=== PATIENT | male | born 1955 | race Caucasian/White ===

== ENCOUNTER 2019-04-11 13:22 | Day surgery (SDC) | payer OTHER, SELFPAY ==
--- NOTE | 2019-04-11 | PATH_ITS ---
[facility] Accession Number: [id number] . 01 Material submitted: . PART A: colon - COLON POLYP AT 30 CM X2 PART B: colon - COLON POLYP AT 40 CM PART C: colon - COLON POLYP AT 10 CM . 02 Diagnosis: A. Colon, Polyp at 30 cm x2, Biopsies: Tubular adenomas. . B. Colon, Polyp at 40 cm, Biopsy: Tubular adenoma in one of three fragments. . C. Colon, Polyp at 10 cm, Biopsy: Tubular adenoma. MRV 04/15/2019 1053 Local . 02 Electronically signed: . Christie Barros MD, Pathologist NPI- [id number] . 01 Gross description: . Part A: COLON POLYP AT 30 CM X2: Received in formalin are multiple fragment(s) of zee, soft tissue measuring 1.0 x 0.7 x 0.2 cm in aggregate submitted entirely in 1 cassette(s) Part B: COLON POLYP AT 40 CM: Received in formalin are 2 fragment(s) of zee, soft tissue measuring 0.3 x 0.2 x 0.2 cm to 0.2 x 0.1 x 0.1 cm submitted entirely in 1 cassette(s) Part C: COLON POLYP AT 10 CM: Received in formalin is 1 fragment(s) of zee, soft tissue measuring 0.3 x 0.2 x 0.1 cm submitted entirely in 1 cassette(s) /QBJ 04/12/2019 1949 Local . 02 Pathologist provided ICD-10: D12.6 . 02 CPT . 271094, 311313, [id number] Performed at: [address], [place], [place] [id number] MD Nash Granda MD Phone: [phone] Performed at: 02 [facility] [address] [place] [id number] MD Christie Barros MD Phone: [phone]
[2019-04-11 14:05] VITALS: BP 119/79; PULSE 91; RESP 20; TEMP 36.9; O2SAT 95; BMI 23.6
[2019-04-11] MEDS: SODIUM CHLORIDE 0.9% 1,000 ML 100 ML IV (14:05)
--- NOTE | 2019-04-11 16:47 | PM.HP.1 ---
History of Present Illness History of Present Illness Date Patient Seen: 04/11/19 Time Patient Seen: 16:50 Chief complaint: [id number] Narrative: Patient presents for colorectal screening. They had a prior endoscopy 5 years ago that ws notable for an adenomatous polyp which was resected. On further history denies any recent gastrointestinal symptoms. No nausea, vomiting, abdominal pain, loss of appetite, unexplained weight loss, change in bowel habits, diarrhea, constipation, melena, hematochezia, or bright red blood per rectum. Patient History Family & Social History Social History: household members none Meds Home Medications and Allergies Home Medications Medication Instructions Recorded Confirmed Type aspirin 81 mg PO QDAY #0 02/03/13 History lisinopril 20 mg PO QDAY #0 02/03/13 History simvastatin 40 mg PO QDAY #0 02/03/13 History pregabalin [Lyrica] 50 mg PO Q DAY #0 02/15/17 History Review of Systems Review of Systems ROS Unobtainable: All systems reviewed & are unremarkable except as noted in HPI and below Exam Vital Signs (past 8 hours): - 04/11/19 14:05 Temperature 98.4 F Pulse Rate 91 H Respiratory Rate 20 Blood Pressure 119/79 Pulse Oximetry 95 Oxygen Delivery Method Room Air Narrative Exam Narrative: General-no acute distress, well nourished HEENT-moist mucous membranes, no scleral icterus Neck-supple, no lymphadenopathy Chest- non labored respirations, clear to auscultation bilaterally Cardiac-regular rate no peripheral edema Abdomen-soft, nontender, non distended Extremities-warm, well perfused Neurological-alert and oriented, no focal deficits Assessment & Plan Assessment and plan (1) Screening for colon cancer: Current visit: Yes Status: Acute Assessment & Plan narrative: The patient requires colorectal screening and colonoscopy is recommended. Technical details were discussed. Risks, benefits, alternatives explained. Risks including but not limited to myocardial infarction, aspiration, bleeding, pain, missed lesion, incomplete examination, need for further radiographic studies, colonic perforation, and need for major abdominal surgery were discussed. All questions were answered to their satisfaction, and they are in agreement with this plan.
[2019-04-11] MEDS: MIDAZOLAM 5 MG/5 ML VIAL IV ×2 (16:52→17:09)
[2019-04-11] MEDS: fentaNYL 250 MCG/5 ML INJ IV (17:09)
[2019-04-11 17:35] VITALS: BP 101/67; PULSE 81; RESP 10; TEMP 36.4; O2SAT 92
[2019-04-11 17:40] VITALS: BP 88/62; PULSE 80; RESP 15; O2SAT 92
--- NOTE | 2019-04-11 17:40 | PM.OP.ENDO ---
Operative Date/Time/Diagnoses Date of procedure: 04/11/19 Time of procedure: 17:40 Pre-op diagnosis: Screening colonoscopy, history adenomatous polyps Post-op diagnosis: same Procedure & Clinicians Study performed: Colonoscopy Same procedure as scheduled: Yes Indications: 63-year-old male history of adenomatous polyps 5 years on colonoscopy presents for screening Surgeon: Jon Bello Procedure Notes SCOAP/Timeout: Performed Procedure in detail: Patient placed in left lateral decubitus position. Time out was performed. Procedural sedation was administered with Versed and Fentanyl. A rectal exam demonstrated no external hemorrhoids no internal masses. Colonoscopy scope was placed into the rectum and advanced through the colon to the cecum. The ileocecal valve was identified. The scope was then slowly withdrawn examining colon thoroughly in all directions. The colonoscopy was notable for the following. Polyps at 30 cm were resected wtih electocautery snare, biopsy performed at 40 cm and 10 cm polyps. Hemostatic 1. 2, 1cm polyps at 30 cm 2. 1 cm polyp at 40 cm 3. 1 cm polyp at 10 cm Scope withdrawal time: 20 Sedation minutes: 40 Findings: polyp Specimen(s): other (polyps) Impression: polyps Post-procedure Recommendations: Colonscopy in 5 years Disposition: same day surgery
[2019-04-11 17:45] VITALS: BP 114/84; PULSE 90; RESP 19; O2SAT 92
[2019-04-11 17:50] VITALS: BP 113/72; PULSE 88; RESP 17; TEMP 36.4; O2SAT 92
== END 2019-04-11 18:00 | disposition home or self-care (01) ==
PROVIDERS: PCP Internal Medicine; Visit Provider Surgery
PROC: 0DJD8ZZ Inspection of Lower Intestinal Tract, Via Natural or Artificial Opening Endoscopic (ICD-10-PCS; CPT 45378; principal; 2019-04-11 14:30)
DX: Z86.010 Personal history of colon polyps (principal); D12.6 Benign neoplasm of colon, unspecified
CPT/HCPCS: 45385; 45380; 99152; 99153; J2250; J3010

== ENCOUNTER 2021-10-01 10:29 | Emergency (ER) | payer MEDICARE, OTHER, SELFPAY ==
[2021-10-01 10:39] VITALS: BP 149/80; PULSE 91; RESP 16; TEMP 36.5; O2SAT 96; BMI 24.3
--- NOTE | 2021-10-01 10:47 | ED_ITS ---
HPI - Extremity Problem General Chief complaint: Extremity Problem,Nontraumatic Stated complaint: rt arm can barely move, elbow to shoulder Time Seen by Provider: 10/01/21 10:47 Source: patient Mode of arrival: Ambulatory History of Present Illness HPI Narrative: 66-year-old gentleman with hypertension hyperlipidemia who had a stroke a number of years ago affecting his right side and creating significant neuropathic pain syndromes presents complaining of right arm pain and decreased mobility. Over the last 2 months he has been having pain in the bicipital area in the right arm with difficulty with abduction, internal rotation and full external rotation. There is no elbow wrist or hand involvement. He describes no injuries. There has been no redness, swelling, drainage or skin abnormalities. Related Data Home Medications Medication Instructions Recorded Confirmed aspirin 81 mg chewable tablet 81 mg PO QDAY #0 02/03/13 lisinopril 20 mg tablet 20 mg PO QDAY #0 02/03/13 04/11/19 simvastatin 40 mg tablet 40 mg PO QDAY #0 02/03/13 04/11/19 pregabalin 50 mg capsule (Lyrica) 50 mg PO Q DAY #0 02/15/17 04/11/19 Allergies Allergy/AdvReac Type Severity Reaction Status Date / Time No Known Drug Allergies Allergy Verified 04/11/19 17:40 Review of Systems Review of Systems Narrative: Remainder of complete review of systems is otherwise unremarkable except for that included in the HPI. Patient History Medical History (Updated 10/01/21 @ 11:07 by Fauzia Delacruz MD) History of stroke HTN (hypertension) Hyperlipidemia Social History household members: none Smoking Status: Current every day smoker Smoking Status: Current every day smoker tobacco type: cigarettes alcohol intake frequency: 0-2 drinks per day Substance Use Type: does not use Exam Initial Vital Signs Initial Vital Signs: Vital Signs Temperature 97.7 F 10/01/21 10:39 Pulse Rate 91 H 10/01/21 10:39 Respiratory Rate 16 10/01/21 10:39 Blood Pressure 149/80 H 10/01/21 10:39 Pulse Oximetry 96 10/01/21 10:39 General: Alert appropriate in no acute distress Respiratory: Able to speak in full sentences, no obvious respiratory distress Skin: No obvious rashes, warm and dry Neurologic: Grossly intact no obvious asymmetries or abnormalities Psych: appropriate insight and affect, cooperative Extremity: Shoulders are symmetrical. There is no tenderness with palpation along the shoulder or bicipital insertion or bicipital body. With passive internal and external rotation has significant limitation to range of motion with pain along the deltoid insertion. Similar complaints with abduction greater than 45?. He is able to reach forward however is unable to raise his arm past 45? in this position Course Vital Signs Vital signs: Vital Signs - 8 hr 10/01/21 10:39 Temperature 97.7 F Pulse Rate 91 H Respiratory Rate 16 Blood Pressure 149/80 H Pulse Oximetry 96 MDM - Extremity (Nontraumatic) MDM Narrative Medical decision making narrative: 66-year-old gentleman with prior stroke and slight decreased range of motion on the right side and overall decreased sensation. Over last 2 months he has had increasing right shoulder pain and I suspect that he is developing frozen shoulder syndrome with the significant decreased range of motion and pain with mid range in beyond in the majority of shoulder movement. He apparently just switch to Medicare and is having difficulty finding a primary care physician. Explain findings, encouraged continued activity with that shoulder and recommended physical therapy follow-up. Discharge Plan Departure Patient Disposition: Home Clinical Impression: Frozen shoulder syndrome Instructions: DI for Adhesive Capsulitis -- Closed Manipulation Activity Restrictions/Additional Instructions: Thank you for coming in today Your exam does not suggest any acute bony injuries, infection, significant single tendon injury or bursitis. I am concerned that you are developing frozen shoulder syndrome. This is sometimes seen after strokes particularly with the decreased sensation on your right side. I am going to suggest that you schedule an appointment with physical therapy and see what type of range of motion exercise and the progression of these exercises over the next few months to and prove your mobility and decrease overall pain. Using 400 mg of ibuprofen (2 [id number] pills or half of and 800 mg prescription pill) and 1 Tylenol every 6 hours can be very helpful in controll ing pain. Prescriptions: No Action lisinopril 20 MG tablet 20 mg PO QDAY Qty: 0 0RF simvastatin 40 MG tablet 40 mg PO QDAY Qty: 0 0RF aspirin 81 MG tablet,chewable 81 mg PO QDAY Qty: 0 0RF pregabalin [Lyrica] 50 MG capsule 50 mg PO Q DAY Qty: 0 0RF
== END 2021-10-01 11:24 | disposition home or self-care (01) ==
PROVIDERS: Emergency Provider Emergency Medicine
DX: M75.01 Adhesive capsulitis of right shoulder (principal)
CPT/HCPCS: 99281

== ENCOUNTER 2022-06-14 14:33 | Outpatient (RCR) | payer MEDICARE, OTHER, SELFPAY ==
--- NOTE | 2022-06-14 16:16 | ST.OPIE ---
Visit Care Team Role Provider Type ESTHELA Luong Attending Provider Non-Staff Family Provider Primary Care Provider Referring Provider Specialty: Nursing Address: [address], [address], [place], [address] Email: Speech-Language Pathology Initial Evaluation HOUSING ASSISTANT Clinical Swallow Evaluation Start: 06/14/22 14:40 Freq: Status: Active Protocol: Document 06/14/22 14:41 LNK (Rec: 06/14/22 16:15 LNK [id number]) Clinical Swallow Evaluation Session Time Visit Start Time 14:30 Visit Stop Time 15:30 Total Visit Minutes 60 Visit Information Visit Number 1 Plan of Care Dates 06/14/22-09/12/[address] Hester Reason for Referral dysphagia Setting Assessment Location Outpatient Care Visit Type Note Type Initial evaluation Patient Information Identification Type Name,Date of History Pt presented for an evaluation of a cough that he reports is getting worse. His His PMH includes a CVA approximately 8 years ago after which he was unable to swallow x 2 days. He reported that his cough started around the time of his CVA, but that it has progressively become worse. He reported that when he lays down at night, he can only get 1-2 hours sleep at a time and then he wakes up coughing. He describes his airway closing and at time he feels like he will pass out when coughing. Pt further described that his coughing can start if he needs to breathe in quickly and/or deeply. He will feel his throat compress when he lays down, which will eventually cause coughing. The pt denies any relationship between eating/drinking and coughing. Subjective Observations Pt is a pleasant man who was on time for his appointment Reported by Patient Location Neck Other Symptoms Coughing Comment Pt denies relationship between eating/drinking and his coughing Objective Assessment Mental Status Alert,Responsive,Cooperative Oral Integrity WFL Lip Function Within normal limits Observation of Lips at Rest Symmetrical Lip Retraction Within normal limits Tongue Function Within normal limits Food and Liquid Trials Response/Comments No PO trials were administered as pt denied difficulty swallowing. His primary complaing is a significant cough that occurs when inhaling deeply or quickly and when he lays down at night. Results Pt denied any dysphagia. I have no problem with eating and drinking. However, pt presented with a significantly poor vocal quality (i.e., harsh/hoarse). His PMH includes CVA, with inability to swallow x2 days, COPD and currently smoking a pack a day . Pt noted he has smoked for at least 35 years. Pt reports being unable to lay down at night for more that 2 hours when he wakes up feeling like his throat has collapsed and he can't breath, needing to cough. Pt reports that this has increased in frequency and severity over the past year. Pt denies a sleep apnea and GERD. Given the pt's harsh vocal quality, difficulty laying down, a sensation that his throat is collapsing, potential etiologies may be considered. These include: 1) GERD (laying supine), 2) vocal fold paresis/weakness as a result of the CVA (cough, poor vocal quality) that may account for difficulty breathing in bed, and 3) a smoking related pathology within the laryngeal structures that could account for pt's poor vocal quality and sensation of inability to breath with near occlusion when inhaling deeply/quickly. A referral to ENT is strongly recommended for evaluation. Pt noted that he once tried elevating the head of his bed, but the cough continued. Findings Swallowing Function Within functional limits Recommendations Instrumental Assessment No Swallowing Treatment No Referrals Recommended Referrals Gastroenterology,Neurology, Otolaryngology/ENT Education Patient/Caregiver Education Described results of evaluation,Patient expressed understanding of evaluation
== END 2022-06-16 14:07 | disposition home or self-care (01) ==
LOC: SP 14:33
PROVIDERS: Family Provider Nurse Practitioner; PCP Nurse Practitioner; Referring Provider Nurse Practitioner; Visit Provider Nurse Practitioner
DX: R13.10 Dysphagia, unspecified (principal)
CPT/HCPCS: 92610